=== PATIENT | male | born 1990 | race Asian ===

== ENCOUNTER 2024-05-11 19:42 | Inpatient (IN) ==
[2024-05-11] MEDS: SODIUM CHLORIDE 0.9% 1,000 ML IV SCH (20:10)
[2024-05-11] MEDS: ONDANSETRON INJ 2 MG/ML 2 ML VIAL IV STA (20:14)
[2024-05-11 20:24] LABS: Hematocrit (blood only) 44.8 % (42.0-52.0); Hemoglobin 15.3 g/dl (14.0-18.0); Mean Corpuscular Hemoglobin 31.4 pg (25.0-34.0); Mean Corpuscular Hgb Conc 34.2 g/dL (32.0-36.0); Platelet Count 311 K/uL (130-400); RDW Coefficient of Variation 11.9 % (11.5-14.5); RDW Standard Deviation 40.2 fL (36.4-46.3); Red Blood Count 4.87 M/uL (4.70-6.10); White Blood Count 19.31 K/ul (4.8-10.8)
[2024-05-11 20:26] LABS: iSTAT Creatinine 0.9 mg/dl (0.6-1.3); iSTAT Ionized Calcium 1.17 mmol/l (1.12-1.32)
[2024-05-11 20:35] LABS: Alanine Aminotransferase 30 U/L (7-52); Albumin Globulin Ratio 1.7 (0.9-2); Albumin Level 5.2 gm/dl (3.4-5.0); Alkaline Phosphatase 84 U/L (34-104); Anion Gap 15 (3-11); Aspartate Aminotransferase 32 U/L (13-39); BUN Creatinine Ratio 18.1 (10-20); Bilirubin,Total 1.5 mg/dl (0.2-1.0); Blood Urea Nitrogen 17 mg/dl (6-23); Calcium 10.8 mg/dl (8.6-10.3); Carbon Dioxide 22 mmol/L (21-32); Chloride 100 mmol/L (98-107); Creatine Kinase 432 U/L (30-223); Globulin 3.1 gm/dl (2.5-4.0); Glucose 142 mg/dl (70-99(Fasting)); Lipase 13 U/L (11-82); Sodium 137 mmol/L (136-145); Total Protein 8.3 gm/dl (6.0-8.3)
--- NOTE | 2024-05-11 20:58 | Emergency Department Note ---
Impression & Plan Small bowel obstruction, Abdominal pain ED Provider Note NAME: BRE PEREA AGE: 34 SEX: M : 1990 ARRIVES VIA: Walk-In INFORMANT: Patient ED PROVIDER(S): Vasiliy Pedraza DO CHIEF COMPLAINT: abdominal pain HPI: Patient is a 34-year-old male who presents to the ER for severe diffuse crampy abdominal pain associated with nausea and vomiting. He notes he finished up a 12 mile run at [employer]. He normally runs ultramarathons. He notes since this ended around 330 he started vomiting around 4:00 and has been unable to keep anything down. He denies any history of dysuria, urgency or frequency. No other exacerbating or remitting factors. No previous abdominal surgeries. Family is present at bedside and provided additional history and notes that dad received a phone call because the pain was getting worse and he brought him in here directly after the run. ADDITIONAL HISTORY OBTAINED: Per HPI Chronic Medical/Social Conditions Affecting Care: Per HPI PAST MEDICAL HISTORY:See Below PAST SURGICAL HISTORY:See Below FAMILY HISTORY:See Below SOCIAL HISTORY:See Below HOME MEDICATIONS:See Below ALLERGIES:See Below VITALS:See Below PHYSICAL EXAMINATION: GENERAL: Kneeling on bed on all fours holding abdomen, mild distress EYE EXAM: normal conjunctiva. PERRL and EOM's grossly intact. OROPHARYNX: no exudate, no erythema, lips, buccal mucosa, and tongue normal and mucous membranes are moist NECK: supple, no nuchal rigidity, no adenopathy, non-tender LUNGS: Clear to auscultation. Normal chest wall mechanics HEART: no murmurs, S1 normal and S2 normal ABDOMEN: abdomen soft, non-tender, normo-active bowel sounds, no masses, no rebound or guarding. UPPER EXTREMITIES: upper extremities are grossly normal. LOWER EXTREMITIES: No pitting edema. NEURO EXAM: Normal sensorium, cranial nerves II-XII grossly intact, normal speech, no gross weakness of arms, no gross weakness of legs. MEDICAL DECISION MAKING: Patient is a 34-year-old male who presents to the ER for the above-stated complaint. IV was established and blood work was obtained. Labs show leukocytosis of 19,000. No significant anemia. BMP along with LFTs was unremarkable. T. bili slightly up to 1.5. Lactate was normal. CK at 400. Lipase was normal. Patient was given [address] abdomen pelvis suggested and showed a small bowel obstruction. Consulted Dinesh from general surgery who evaluate the patient at bedside here. He agreed and recommended admission. Discussed with Dr. Shukla for admission and further evaluation. Patient was given morphine as well as Zofran. Consults/Care Managements Discussions: Per MDM Triage Nursing notes reviewed. Limited review of prior medical records performed Vital Signs: reviewed and remarkable for no significant abnormalities Differential diagnosis: Differential diagnoses includes but is not limited to gastritis, peptic ulcer disease, GERD, gallbladder disease, pancreatitis, small bowel obstruction, appendicitis, diverticulitis, hernia, urinary tract infection, torsion, perforation, trauma, infectious. ER treatment provided: See below Diagnostics interpreted by me include EKG and cardiac monitoring as listed below: -Cardiac Monitoring: An order was placed for continuous cardiac monitoring. The monitor shows a rate of 70 with sinus rhythm. -ECG: none -Laboratory studies:Interpreted by me as stated above in MDM and shown below. Imaging studies: Xrays: As interpreted by me:none CTs show: CT abdomen pelvis per my pulmonary interpretation showed multiple air- fluid levels CT abdomen pelvis per radiology suggest small bowel obstruction Procedures:none Critical Care: None Past Med/Surg History Problem List (Updated 05/11/24 @ 23:10 by Vasiliy Pedraza DO) Abdominal pain (Acute) Small bowel obstruction (Acute) Social History Smoking Status: Never smoker Feels Safe at Home: Yes Allergies Allergies Allergy/AdvReac Type Severity Reaction Status Date / Time diphenhydramine Allergy Anaphylaxis Unverified 05/11/24 21:58 [From Benadryl] Iodinated Contrast Media Allergy Unknown Unverified 05/11/24 22:00 vancomycin AdvReac Itching Unverified 05/11/24 22:00 Home Meds Home Medications Medication Instructions Recorded Confirmed No Known Home Medications 05/11/24 05/11/24 Results & Data (ED) Vital Signs Vital Signs - 24 hr 05/11/24 19:45 05/11/24 19:49 05/11/24 20:00 Temperature 36.4 C L Temperature Source Temporal Artery Scan Pulse Rate 79 70 Pulse Rate [Left] 70 Pulse Rhythm Regular Regular Pulse Rhythm [Left] Regular Pulse Strength Normal Pulse Strength [Left] Normal Respiratory Rate 20 24 Respiratory Effort / Characteristics Non-Labored Spontaneous Non-Labored Spontaneous Respiratory Depth Normal Normal Respiratory Pattern Regular Blood Pressure 120/77 Blood Pressure [Right Arm] 130/73 Blood Pressure Mean 91 Blood Pressure Mean [Right Arm] 92 Blood Pressure Position [Right Arm] Lying Pulse Oximetry 98 99 99 Oxygen Delivery Method Room Air Room Air Room Air Sepsis Recent Fever Within 48 Hours No Sepsis New/Unexplained Change in Mental Status N/A Sepsis Action Taken by Nursing No Action Required 05/11/24 20:01 05/11/24 22:00 Temperature Temperature Source Pulse Rate 66 Pulse Rate [Left] 68 Pulse Rhythm Pulse Rhythm [Left] Regular Pulse Strength Pulse Strength [Left] Normal Respiratory Rate 20 Respiratory Effort / Characteristics Non-Labored Spontaneous Respiratory Depth Normal Respiratory Pattern Blood Pressure Blood Pressure [Right Arm] 117/79 Blood Pressure Mean Blood Pressure Mean [Right Arm] 91 Blood Pressure Position [Right Arm] Lying Pulse Oximetry 100 Oxygen Delivery Method Room Air Sepsis Recent Fever Within 48 Hours Sepsis New/Unexplained Change in Mental Status Sepsis Action Taken by Nursing Laboratory Data 05/11/24 20:04 05/11/24 20:04 Lab Results 05/11/24 05/11/24 05/11/24 Range/Units 20:04 20:13 22:10 WBC 19.31 H (4.8-10.8) K/ul RBC 4.87 (4.70-6.10) M/uL Hgb 15.3 (14.0-18.0) g/dl POC Hgb 16.0 (14.0-18.0) g/dl Hct 44.8 (42.0-52.0) % POC Hct 47 (42-52) % MCV 92.0 (80.0-100.0) fL MCH 31.4 (25.0-34.0) pg MCHC 34.2 (32.0-36.0) g/dL RDW Std Deviation 40.2 (36.4-46.3) fL RDW Coeff of Alonso 11.9 (11.5-14.5) % Plt Count 311 (130-400) K/uL MPV 10.0 (9.4-12.4) fL Immature Gran % (Auto) 0.7 % Neut % (Auto) 91.1 % Lymph % (Auto) 4.3 % Chaffee % (Auto) 3.5 % Eos % (Auto) 0.1 % Baso % (Auto) 0.3 % Neut # (Auto) 17.61 H (1.40-6.50) K/uL Lymph # (Auto) 0.83 L (1.20-3.40) K/uL [place]affee # (Auto) 0.67 H (0.11-0.59) K/uL Eos # (Auto) 0.01 (0.00-0.50) K/uL Baso # (Auto) 0.06 (0.00-0.20) K/uL Immature Gran # (Auto) 0.13 (0.01-0.20) K/uL POC Sodium 138 (135-144) mmol/L Sodium 137 (136-145) mmol/L POC Potassium 4.0 (3.3-5.0) mmol/L Potassium 4.0 (3.5-5.1) mmol/L POC Chloride 101 (101-112) mmol/L Chloride 100 (98-107) mmol/L Carbon Dioxide 22 (21-32) mmol/L POC Total CO2 20 L (24-31) mmol/L Anion Gap 15 H (3-11) POC Anion Gap 21.0 (16-25) mmol/L POC BUN 18 (7-18) mg/dl BUN 17 (6-23) mg/dl Creatinine 0.94 (0.6-1.4) mg/dl POC Creatinine 0.9 (0.6-1.3) mg/dl Est Cr Clr Drug Dosing Not Reportable eGFR 108.42 BUN/Creatinine Ratio 18.1 (10-20) Glucose 142 H (70-99(Fasting)) mg/dl POC Glucose (other) 147 H (70-99) mg/dl Lactate 1.4 (0.4-2.0) mmol/L Calcium 10.8 H (8.6-10.3) mg/dl POC Ioniz Calcium Billie 1.17 (1.12-1.32) mmol/l Total Bilirubin 1.5 H (0.2-1.0) mg/dl AST 32 (13-39) U/L ALT 30 (7-52) U/L Alkaline Phosphatase 84 (34-104) U/L Total Creatine Kinase 432 H (30-223) U/L Total Protein 8.3 (6.0-8.3) gm/dl Albumin 5.2 H (3.4-5.0) gm/dl Globulin 3.1 (2.5-4.0) gm/dl Albumin/Globulin Ratio 1.7 (0.9-2) Lipase 13 (11-82) U/L Administered Medications Lactated Ringer's (Lr) 1,000 mls @ 125 mls/hr IV .Q8H TYE Stop: 05/12/24 22:14 Last Admin: 05/11/24 22:31 Dose: 125 mls/hr Documented By: [facility] Discontinued Medications Sodium Chloride (Nss) 1,000 mls @ 999 mls/hr IV .Q1H1M TYE Stop: 05/11/24 22:15 Last Infusion: 05/11/24 21:50 Dose: Infused Documented By: Admin: 05/11/24 21:47 Dose: 999 mls/hr Documented By: Infusion: 05/11/24 21:24 Dose: Infused Documented By: Admin: 05/11/24 20:10 Dose: 999 mls/hr Documented By: SYLVESTER Morphine Sulfate (Morphine Sulfate 4 Mg/Ml 1 Ml Carp\Vial) 4 mg IV NOW STA Stop: 05/11/24 21:24 Last Admin: 05/11/24 21:50 Dose: Not Given Documented By: [facility] Ondansetron HCl (Ondansetron Inj 2 Mg/Ml 2 Ml Vial) 4 mg IV NOW STA Stop: 05/11/24 20:08 Last Admin: 05/11/24 20:14 Dose: 4 mg Documented By: SYLVESTER Imaging Data Radiologist's Impression: Abdomen/Pelvis CT 05/11/24 20:30 Exam(s): CT ABDOMEN + PELVIS Without Contrast EXAM: CT Abdomen and Pelvis Without Intravenous Contrast CLINICAL HISTORY: Reason for exam: abd pain n/v. TECHNIQUE: Axial computed tomography images of the abdomen and pelvis without intravenous contrast. CTDI is 7 mGy and DLP is 334 mGy-cm. Automated exposure control was utilized for the study. A dose lowering technique was utilized adhering to the principles of ALARA. COMPARISON: No relevant prior studies available. FINDINGS: ABDOMEN: Liver: Unremarkable. Gallbladder and bile ducts: Unremarkable. Pancreas: Unremarkable. Spleen: Unremarkable. Adrenals: Unremarkable. Kidneys and ureters: Unremarkable. No obstructing stones. No hydronephrosis. Stomach and bowel: Fluid-filled distended small bowel loops predominantly involving the jejunum. The ileum appears decompressed. Findings are suggestive of obstruction. No pneumatosis, portal venous gas, or free air. Transition point not clearly identified. PELVIS: Appendix: No findings to suggest acute appendicitis. Bladder: Unremarkable. Reproductive: Unremarkable as visualized. ABDOMEN and PELVIS: Intraperitoneal space: Indeterminate fat stranding in the left upper quadrant. The lack of IV contrast limits evaluation. No free fluid or free air. Bones/joints: No acute fracture. Soft tissues: Unremarkable. Vasculature: Unremarkable. Lymph nodes: Unremarkable. IMPRESSION: 1. Findings suggestive of small bowel obstruction. 2. Indeterminate fat stranding in the left upper quadrant. The lack of IV contrast limits evaluation. Electronically signed by: Sukhdev Gonsalez MD 05/11/24 21:07 PM Discharge Plan Visit Data Chief Complaint: Vomiting Stated Complaint: VOMITING ED Provider: Vasiliy Pedraza Discharge Problem: Small bowel obstruction, Abdominal pain Forms Stand Alone Forms: Se[employer] Prescriptions Prescriptions: No Action No Known Home Medications Referrals Referrals: PCP,NO [Primary Care Provider] - Discharge Problem: Abdominal pain Qualifiers: Abdominal location: unspecified location Qualified Code(s): R10.9 - Unspecified abdominal pain
[2024-05-11 20:59] LABS: Basophils # (auto) 0.06 K/uL (0.00-0.20); Basophils % (auto) 0.3 %; Eosinophils # (auto) 0.01 K/uL (0.00-0.50); Eosinophils % (auto) 0.1 %; Immature Granulocytes # (auto) 0.13 K/uL (0.01-0.20); Immature Granulocytes % (auto) 0.7 %; Lymphocytes # (auto) 0.83 K/uL (1.20-3.40); Lymphocytes % (auto) 4.3 %; Monocytes # (auto) 0.67 K/uL (0.11-0.59); Monocytes % (auto) 3.5 %; Neutrophils # (auto) 17.61 K/uL (1.40-6.50); Neutrophils % (auto) 91.1 %
--- NOTE | 2024-05-11 21:09 | CT Scan Report ---
Exam(s): CT ABDOMEN + PELVIS Without Contrast EXAM: CT Abdomen and Pelvis Without Intravenous Contrast CLINICAL HISTORY: Reason for exam: abd pain n/v. TECHNIQUE: Axial computed tomography images of the abdomen and pelvis without intravenous contrast. CTDI is 7 mGy and DLP is 334 mGy-cm. Automated exposure control was utilized for the study. A dose lowering technique was utilized adhering to the principles of ALARA. COMPARISON: No relevant prior studies available. FINDINGS: ABDOMEN: Liver: Unremarkable. Gallbladder and bile ducts: Unremarkable. Pancreas: Unremarkable. Spleen: Unremarkable. Adrenals: Unremarkable. Kidneys and ureters: Unremarkable. No obstructing stones. No hydronephrosis. Stomach and bowel: Fluid-filled distended small bowel loops predominantly involving the jejunum. The ileum appears decompressed. Findings are suggestive of obstruction. No pneumatosis, portal venous gas, or free air. Transition point not clearly identified. PELVIS: Appendix: No findings to suggest acute appendicitis. Bladder: Unremarkable. Reproductive: Unremarkable as visualized. ABDOMEN and PELVIS: Intraperitoneal space: Indeterminate fat stranding in the left upper quadrant. The lack of IV contrast limits evaluation. No free fluid or free air. Bones/joints: No acute fracture. Soft tissues: Unremarkable. Vasculature: Unremarkable. Lymph nodes: Unremarkable. IMPRESSION: 1. Findings suggestive of small bowel obstruction. 2. Indeterminate fat stranding in the left upper quadrant. The lack of IV contrast limits evaluation. Electronically signed by: Sukhdev Gonsalez MD 05/11/24 21:07 PM
[2024-05-11] MEDS: MoRPHine SULFATE 4 MG/ML 1 ML CARP\\VIAL IV STA (21:50)
--- NOTE | 2024-05-11 21:54 | History & Physical Report ---
Date of Service May 11, 2024 Assessment & Plan (1) Small bowel obstruction: Plan: Pt is a 34 yo male presenting due to vomiting. SBO - unclear etiology; no hx of bowel obstructions, no abdominal surgeries, etc; suspect abdominal pain possibly secondary to transient ischemia (although lactic acid WNL) - lab work significant for leukocytosis to 19 w/ left shift, Hgb 15.3, Cr 0.94, Ca 10.8, bilirubin 1.5, CK 432, and lipase 13 - CTAP showing findings suggestive of SBO and fat stranding in left upper quadrant - will treat conservatively; NPO, IVF, nausea/pain meds PRN - if symptoms remain stable, would recommend advancement of diet as tolerated Diet: NPO, IVF at 125 mL/hr VTE ppx: deferred, low risk- encourage ambulation Code: full Dispo: admit to med/surg History of Present Illness Chief Complaint: vomiting Primary Care Provider: NO PCP Pt is a 34 yo male presenting due to vomiting. 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 He notes about 20 minutes after finishing the race he developed severe, sharp, diffuse abdominal pain. He laid down in his car for an hour for the pain to pass. He then began vomiting- no blood in his vomit. He denies any BM since the race; his last BM was prior to the race today. He is typically regular with his BM. No personal or fam hx of bowel concerns or IBD. In the ER, pt was given 4mg of zofran and 2L of NS. Allergies Allergy/AdvReac Type Severity Reaction Status Date / Time diphenhydramine Allergy Anaphylaxis Unverified 05/11/24 21:58 [From Benadryl] Iodinated Contrast Media Allergy Unknown Unverified 05/11/24 22:00 vancomycin AdvReac Itching Unverified 05/11/24 22:00 Home Medications Medication Instructions Recorded Confirmed Type No Known Home Medications 05/11/24 05/11/24 History Past Med/Surg History Problem List (Updated 05/11/24 @ 23:10 by Vasiliy Pedraza DO) Abdominal pain (Acute) Small bowel obstruction (Acute) Social History Smoking Status: Never smoker Hx Alcohol Use: Yes Alcohol type: beer, wine and hard liquor Hx Substance Use: No Communication Ability: Effective [employer] Experience Strategy Required: No Beliefs That Will Affect Care: None Current Living Situation: Family Feels Safe at Home: Yes Assistive Devices: None Review of Systems Review of Systems: As per HPI Physical Exam Constitutional: NAD, vitals WNL. Eyes: Conjunctivae normal. Respiratory: CTA bilaterally. Non labored breathing. No rhonchi, wheezing, or crackles. Cardiovascular: RRR. No murmurs noted. No LE edema. Gastrointestinal (Abdomen): Nontender, +BS. No masses noted. Skin: No rashes or skin lesions noted. Neurologic: Sensation grossly intact. No FND appreciated. Psychiatric: Speech of normal pace and content. Mood and affect congruent. Results & Data Results & Data Vital Signs (Past 12 Hours) Vital Signs Temp Pulse Pulse Resp BP BP Pulse Ox 05/11/24 20:01 66 05/11/24 20:00 70 24 130/73 99 05/11/24 19:49 70 99 05/11/24 19:45 36.4 C L 79 20 120/77 98 O2 Del Method 05/11/24 20:01 05/11/24 20:00 Room Air 05/11/24 19:49 Room Air 05/11/24 19:45 Room Air Supervising Physician Co-Signing Physician Notes Attending addendum: I have physically seen this patient, have supervised the medical residents activities, and agree with the H&P unless as otherwise noted. Assessment and Plan: Small bowel obstruction- N.p.o. No obvious precipitating cause Patient is an avid participant, and may be association with transient ischemia As noted on CT scan of abdomen pelvis Zofran 4 mg IV every 6 hours as needed IV fluids as noted Consult to general surgery Resident Activity Tracking Resident Involvement: Resident Care Provided Care Provided: Adult Hospital Medicine
--- NOTE | 2024-05-11 22:03 | Surgery Consultation ---
Date of Consultation May 11, 2024 Assessment & Plan (1) Small bowel obstruction: I discussed with the treating emergency room physician and the patient is being admitted on the hospitalist service. I did evaluate the patient in room B4. From a surgical perspective we recommend the following: The patient does not have definite small bowel obstruction as there is no clear delineation or transition point on his CT scan. I do not appreciate any hernias and the patient has a virgin abdomen thus making intra-abdominal adhesions less likely I did discuss with the patient that it is possible that he may have had some transient gut ischemia due to his recent endurance event and the symptoms he was experiencing may be secondary to this Patient also has an element of rhabdomyolysis, also likely from his recent endurance event and this may be contributing to his current symptomatology Would recommend keeping patient n.p.o. for the present time Would recommend providing aggressive intravenous fluid for hydration Would recommend following serial labs Would recommend utilizing analgesics and antiemetics sparingly as we do not mask an underlying problem that may be present We will consider instituting oral intake beginning with clear liquids as the patient symptomatology continues to improve At the present time the patient currently is not experiencing any nausea and his abdomen is nondistended therefore I feel we do not need to place an NG tube at this time. If he does have any clinical deterioration we will rethink the use of this modality -At the time of my interview with the patient he was noted to be nontoxic- appearing. He is normotensive and not tachycardic. He also does not have a fever. Additional recommendations with forthcoming based on his clinical course as it unfolds Addendum (6:00 AM) Patient revisited at bedside. Patient says since my initial visit in the emergency department he had 1 further episode of nausea around midnight but is not had any since. He has since been able to urinate without difficulty he also notes that he has had multiple bowel movements. At the present time he says his abdomen feels completely fine without any pain or nausea. On physical exam patient's abdomen is soft and nondistended. There is no pain with palpation in his abdomen is entirely benign. Will continue with plan as outlined above History of Present Illness Reason for Consultation: Possible small bowel obstruction History of Present Illness This is a 34-year-old male who presented [facility] emergency department secondary to abdominal pain. Patient says that he typically runs ultramarathons and ran a race today at [facility] just outside of [place], [place]. Patient says that the race was approximately 12 miles long into 3 separate legs. The patient says that upon the conclusion of the race he was initially doing well but shortly thereafter developed severe stomach cramps in a generalized fashion without any radiation or modifying factors. Patient says that shortly after these cramps began he had what he describes as a normal bowel movement without melena or blood. He then had severe nausea and vomiting and was unable to keep any oral intake down. Because of this he presented the emergency department. Since his symptoms began he has had 1 bowel movement as noted above but has not had any since and is not passing any flatus. He notes he has never had any abdominal surgery before. He has never experienced such symptoms after any of his running events in the past. He does note that his most recent bout of emesis was approximate 2 hours ago. Since arrival to the emergency department he has had labs and imaging which I independently reviewed. A CT scan of the abdomen pelvis showed that that patient had fluid-filled and distended small bowel loops largely involving the jejunum with a decompressed ileum. Interpreting radiologist could not exclude small bowel obstruction. There is no pneumatosis, portal venous gas, or free air. There is also no clearly defined transition point. Labs included CBC were white blood cell count was elevated 19.3. Hemoglobin and hematocrit as well as the platelet count were normal. Chemistry profile showed sodium and potassium as well as the BUN and creatinine were normal. Patient did have an elevation of his total bilirubin 1.5 but his LFTs were otherwise unremarkable. His lipase was not elevated. Patient's total creatinine kinase level was 432. Lactic acid level was not elevated at 1.4. At the time of my interview the patient had already received intravenous fluids for hydration and notes that he was feeling somewhat better. Concerning past medical history the patient denies any medical problems Concerning past surgical history he had surgery on his right hand but has never had any additional surgeries Patient notes he does not take any medications but he says he is allergic to vancomycin which causes "red man" syndrome, Compazine which causes combativeness, and he also notes that he reacts unfavorably to Benadryl. The patient also reported to the treating emergency room physician that he is anaphylactic to intravenous contrast Concerning social history the patient consumes approximately 5 alcoholic beverages per week. He does not smoke or vape Concerning family history the patient says that his father has some type of an delineated bowel problem he is not sure of any specific details on Allergies Allergy/AdvReac Type Severity Reaction Status Date / Time diphenhydramine Allergy Anaphylaxis Unverified 05/11/24 21:58 [From Benadryl] Iodinated Contrast Media Allergy Unknown Unverified 05/11/24 22:00 vancomycin AdvReac Itching Unverified 05/11/24 22:00 Home Medications Medication Instructions Recorded Confirmed Type No Known Home Medications 05/11/24 05/11/24 History Patient History Social History Smoking Status: Never smoker Hx Alcohol Use: Yes Alcohol type: beer, wine and hard liquor Hx Substance Use: No Communication Ability: Effective Systems Mechanic Required: No Beliefs That Will Affect Care: None Current Living Situation: Family Other Information That Helps Us Care for You: No Feels Safe at Home: Yes Safety Concerns: Feels Safe At This Time Assistive Devices: None Review of Systems Review of Systems: All systems reviewed & are unremarkable except as noted in HPI & below Physical Exam Constitutional: WD/WN, vitals as above Eyes: no conjunctival abnormality ENMT: Ears: no hearing impairment and no external ear abnormality Mouth: no oropharynx abnormality Neck: trachea midline Respiratory: normal respiratory effort; no respiratory distress and no labored breathing Cardiovascular: Rate/Rhythm: regular rate and regular rhythm Gastrointestinal (Abdomen): At the time of my exam the patient's abdomen was soft and nondistended. It was nonrigid. There is no pain with palpation. I did not appreciate any hernias on my exam. There is no rebound tenderness or guarding or other signs of peritonitis Musculoskeletal: No calf tenderness. Skin: no rashes Neurologic: moves all extremities Psychiatric: A+Ox3, euthymic affect Results & Data Vital Signs (Past 12 Hours) Vital Signs Temp Pulse Pulse Resp BP BP Pulse Ox 05/11/24 20:01 66 05/11/24 20:00 70 24 130/73 99 05/11/24 19:49 70 99 05/11/24 19:45 36.4 C L 79 20 120/77 98 O2 Del Method 05/11/24 20:01 05/11/24 20:00 Room Air 05/11/24 19:49 Room Air 05/11/24 19:45 Room Air PG Care Time/CCT Total # of Minutes Spent Total Time Spent with Patient: Total time spent is greater than 50% in coordination of care (as documented) at patient's floor/unit and/or counseling patient: Coding Level of Care Code 56334 IN/OBS CONSULT LVL 5,80M Diagnoses Small bowel obstruction K56.609
[2024-05-11] MEDS ORDERED: ONDANSETRON INJ 2 MG/ML 2 ML VIAL IV PRN (22:13)
[2024-05-11] MEDS ORDERED: KETOROLAC TROMETHAMINE 15 MG/ML VIAL IV PRN (22:17)
[2024-05-11] MEDS ORDERED: HYDROmorphone INJ 0.5 MG/0.5 ML SYR IV PRN (22:17)
[2024-05-11] MEDS ORDERED: ACETAMINOPHEN 1,000 MG/100 ML VIAL IV PRN (22:17)
[2024-05-11] MEDS: LACTATED RINGER'S 1,000 ML IV SCH (22:31)
[2024-05-11 23:33] LABS: Appearance Urine Clear (Clear); Bacteria Urine Automated None Seen (None Seen); Bilirubin Urine Negative (Negative); Blood Urine Negative (Negative); Cast Urine Automated 0-2 /lpf (0-2); Color Urine Yellow; Epithelial Cell Urine Auto 0-2 /hpf (0-2); Glucose Urine UA Negative (Negative); Ketones Urine 4+ (Negative); Leukocyte Esterase Urine Negative (Negative); Nitrite Urine Negative (Negative); Protein Urine Trace (Negative); RBC Urine Automated 0-2 /hpf (0-2); Specific Gravity Urine 1.024 (1.000-1.030); Urobilinogen Urine Negative (Negative); WBC Urine Automated 0-5 /hpf (0-5)
[2024-05-12 08:55] LABS: Basophils # (auto) 0.04 K/uL (0.00-0.20); Basophils % (auto) 0.3 %; Eosinophils # (auto) 0.02 K/uL (0.00-0.50); Eosinophils % (auto) 0.2 %; Hematocrit (blood only) 40.5 % (42.0-52.0); Hemoglobin 13.5 g/dl (14.0-18.0); Immature Granulocytes # (auto) 0.04 K/uL (0.01-0.20); Immature Granulocytes % (auto) 0.3 %; Lymphocytes # (auto) 1.84 K/uL (1.20-3.40); Lymphocytes % (auto) 15.7 %; Mean Corpuscular Hemoglobin 31.3 pg (25.0-34.0); Mean Corpuscular Hgb Conc 33.3 g/dL (32.0-36.0); Mean Corpuscular Volume 93.8 fL (80.0-100.0); Mean Platelet Volume 10.4 fL (9.4-12.4); Monocytes # (auto) 1.02 K/uL (0.11-0.59); Monocytes % (auto) 8.7 %; Neutrophils # (auto) 8.74 K/uL (1.40-6.50); Neutrophils % (auto) 74.8 %; Platelet Count 262 K/uL (130-400); RDW Coefficient of Variation 11.9 % (11.5-14.5); RDW Standard Deviation 41.5 fL (36.4-46.3); Red Blood Count 4.32 M/uL (4.70-6.10)
[2024-05-12 09:05] LABS: Albumin Globulin Ratio 1.9 (0.9-2); Albumin Level 4.1 gm/dl (3.4-5.0); Calcium 9.1 mg/dl (8.6-10.3); Creatinine Clr Calc Pharmacy 119.6 ml/min; Globulin 2.2 gm/dl (2.5-4.0); Total Protein 6.3 gm/dl (6.0-8.3)
--- NOTE | 2024-05-12 09:23 | Surgery Progress Note ---
<Statement entered by Yolande Solis, - 05/12/24 15:21> Not likely SBO. Probable ileus secondary to shunting from GI tract after running. Patient without abdominal pain or tenderness this am. No nausea and has started passing flatus. Agree with the plan. Date of Service May 12, 2024 Assessment & Plan (1) Small bowel obstruction: Plan: pt feeling well this AM having multiple BMs and flatus mild bloating , no nausea ordered KUB WBC downtrending, 11(19) poss. starting clears this AM pending KUB Admission and Anticipated Discharge Date Admission Date: May 11, 2024 Subjective pt denies n/v , abd pain , having multiple bms , mild bloating Review of Systems Constitutional: no fever and no chills Respiratory: no dyspnea Cardiovascular: no chest pain Gastrointestinal: + bloating; no abdominal pain, no nausea and no vomiting Musculoskeletal: no muscle weakness Physical Exam Constitutional: cooperative and comfortable; no acute distress Respiratory: normal respiratory effort; no respiratory distress Cardiovascular: Rate/Rhythm: regular rate Gastrointestinal (Abdomen): Inspection/Auscultation: abdomen not distended Percussion/Palpation: abdomen soft; abdomen nontender and no guarding Musculoskeletal: no cyanosis or clubbing, extremities motor strength 5/5 Psychiatric: A+Ox3, euthymic affect Results & Data Vital Signs (Past 12 Hours) Vital Signs Temp Pulse Resp BP Pulse Ox O2 Del Method 05/12/24 07:53 98.8 F 62 16 94/58 L 98 Room Air 05/12/24 00:40 Room Air 05/12/24 00:40 99.1 F 60 16 117/74 97 Room Air 05/11/24 22:14 68 16 100 Room Air 05/11/24 22:00 68 20 117/79 100 Room Air Results CBC w Diff Results: RBC 4.32 M/uL (4.70-6.10) L 05/12/24 WBC 11.70 K/ul (4.8-10.8) H 05/12/24 Hgb 13.5 g/dl (14.0-18.0) L 05/12/24 Hct 40.5 % (42.0-52.0) L 05/12/24 MCV 93.8 fL (80.0-100.0) 05/12/24 MCH 31.3 pg (25.0-34.0) 05/12/24 MCHC 33.3 g/dL (32.0-36.0) 05/12/24 RDW Standard Deviation 41.5 fL (36.4-46.3) 05/12/24 RDW Coefficient of Variation 11.9 % (11.5-14.5) 05/12/24 Plt Count 262 K/uL (130-400) 05/12/24 MPV 10.4 fL (9.4-12.4) 05/12/24 Neutrophils (%) (Auto) 74.8 % 05/12/24 Lymphocytes (%) (Auto) 15.7 % 05/12/24 Monocytes # (Auto) 1.02 K/uL (0.11-0.59) H 05/12/24 Eosinophils # (Auto) 0.02 K/uL (0.00-0.50) 05/12/24 Immature Granulocyte % (Auto) 0.3 % 05/12/24 Neutrophils # (Auto) 8.74 K/uL (1.40-6.50) H 05/12/24 Lymphocytes # (Auto) 1.84 K/uL (1.20-3.40) 05/12/24 Monocytes # (Auto) 1.02 K/uL (0.11-0.59) H 05/12/24 Eosinophils # (Auto) 0.02 K/uL (0.00-0.50) 05/12/24 Basophils # (Auto) 0.04 K/uL (0.00-0.20) 05/12/24 Immature Granulocyte # (Auto) 0.04 K/uL (0.01-0.20) 4 PG Care Time/CCT Total # of Minutes Spent Total Time Spent with Patient: Total time spent is greater than 50% in coordination of care (as documented) at patient's floor/unit and/or counseling patient: Coding Level of Care Code 05256 SUB INP/OBS CARE 08/09MIN Diagnoses Small bowel obstruction K56.609
--- NOTE | 2024-05-12 10:08 | XRay Report ---
KUB HISTORY: Acute generalized abdominal pain with small bowel obstruction sbo COMPARISON: CT 05/11/2024 FINDINGS: Vascular calcifications of the pelvis. There is persistent gaseous distention of the small bowel with air-filled loops measuring up to 4.3 cm. Air also noted within the transverse colon. No r enal calculi. No ureteral calculi. No pneumoperitoneum or pneumatosis. No fracture. IMPRESSION: Persistent small bowel distention suggestive of ileus versus obstruction. Continued follow-up is need ed. ACT 112: Negative or not required by law. The above report was generated using voice recognition software. It may contain grammatical, syntax o r spelling errors. Electronically signed by: Gamal Bruner M.D. 05/12/2024 10:06 AM
--- NOTE | 2024-05-12 14:04 | Hospitalist Progress Note ---
Date of Service May 12, 2024 Assessment & Plan (1) Abdominal pain: Plan: Presented with vomiting and severe, sharp, diffuse abdominal pain after finishing 12 mile run at [facility] - No history of abdominal surgeries, prior bowel obstructions, etc. - Leukocytosis of 19.31, CK of 432, total bilirubin of 1.5, and UA with 4+ ketones on admission -- suspect element of rhabdomyolysis given endurance running event prior to admission - CT A/P with findings suggestive of SBO, transition point not clearly identified - Nausea resolved on admission, NG tube deferred - Treated initially with IV fluids, which were discontinued when diet was advanced to clear liquids. Encourage oral intake - General surgery consulted, following - Suspect abdominal pain and vomiting was secondary to ischemic colitis event / ileus due to hypotension/dehydration in setting of endurance running versus SBO given no prior history of abdominal surgeries, not definitive SBO on imaging, and quick resolution in his symptoms > Discussed with general surgery about prevention strategies for the future or further outpatient referrals; not needed per their recommendations as he likely got an ileus from dehydration during excessive exercise - Leukocytosis downtrending to 11.70 -- suspect inflammatory response; no signs of acute infection, afebrile - KUB revealed persistent small bowel distention suggestive of ileus versus obstruction. Continued follow-up is needed - Diet advanced to clear liquids, well-tolerating this. Will advance to full liquids for dinner. If well-tolerated, can advance to low fiber for breakfast 05/13 - Tylenol as needed for pain/fever - Zofran as needed for nausea - Toradol and Dilaudid as needed for severe pain - has not needed Plan Advanced diet Discontinued IV fluids Discussed case with general surgery Dispo: Anticipate discharge home 05/13 if diet advancements are tolerated and he continues to clinically improve VTE PPx: Deferred, low riskencourage ambulation CODE STATUS: Full code Admission and Anticipated Discharge Date Admission Date: May 11, 2024 Supervising Physician Co-Signing Physician Notes Attending Attestation - Chart reviewed, care plan d/w LILI Evangelista. I agree w/ the barrios components of her documentation. Small bowel ileus - due to hypoperfusion in the setting of intense exercise/volume contracted state? (4+ ketones upon presentation) Consider GI consultation in addition to gen surg consult. Need for dedicated study to look at vasculature? Appreciate gen surg assistance. Cheng Jeronimo MD Subjective Patient seen and evaluated at bedside. He described his symptom onset yesterday. He states his abdominal pain has completely resolved, denies any nausea or vomiting, and has passed gas and had multiple bowel movements. We discussed that I feel this is more likely ischemic colitis than a small bowel obstruction as he has no prior history of abdominal surgeries, not definitive SBO on imaging, and quick resolution in his symptoms. Suspect episode of ischemic colitis was secondary to hypotension/dehydration in the setting of endurance running. Anticipate discharge home tomorrow, 05/13, if clinical course continues to improve. No additional complaints or concerns at this time. Physical Exam Physical Exam: General: No acute distress, nondiaphoretic, well-developed, well-nourished. Skin: The skin was without rashes, erythema, edema, or bruising. Cardiac: Regular rate and rhythm without murmurs gallops or rubs. Pulm: Clear to auscultation bilaterally without wheezes, rales or rhonchi. No respiratory distress. 100% on room air. Abdominal: Soft, nondistended. Nontender to palpation. Bowel sounds present. No rebound tenderness or guarding noted. Neuro: A&O x3. No focal neurological deficits. Results & Data Results & Data Vital Signs (Past 12 Hours) Vital Signs Temp Pulse Resp BP Pulse Ox O2 Del Method 05/12/24 07:53 98.8 F 62 16 94/58 L 98 Room Air Laboratory Results Reviewed CBC Reviewed CMP Reviewed UA Diagnostic Findings Reviewed CT A/P and KUB Abdomen/Pelvis CT 05/11/24 20:30 Exam(s): CT ABDOMEN + PELVIS Without Contrast EXAM: CT Abdomen and Pelvis Without Intravenous Contrast CLINICAL HISTORY: Reason for exam: abd pain n/v. TECHNIQUE: Axial computed tomography images of the abdomen and pelvis without intravenous contrast. CTDI is 7 mGy and DLP is 334 mGy-cm. Automated exposure control was utilized for the study. A dose lowering technique was utilized adhering to the principles of ALARA. COMPARISON: No relevant prior studies available. FINDINGS: ABDOMEN: Liver: Unremarkable. Gallbladder and bile ducts: Unremarkable. Pancreas: Unremarkable. Spleen: Unremarkable. Adrenals: Unremarkable. Kidneys and ureters: Unremarkable. No obstructing stones. No hydronephrosis. Stomach and bowel: Fluid-filled distended small bowel loops predominantly involving the jejunum. The ileum appears decompressed. Findings are suggestive of obstruction. No pneumatosis, portal venous gas, or free air. Transition point not clearly identified. PELVIS: Appendix: No findings to suggest acute appendicitis. Bladder: Unremarkable. Reproductive: Unremarkable as visualized. ABDOMEN and PELVIS: Intraperitoneal space: Indeterminate fat stranding in the left upper quadrant. The lack of IV contrast limits evaluation. No free fluid or free air. Bones/joints: No acute fracture. Soft tissues: Unremarkable. Vasculature: Unremarkable. Lymph nodes: Unremarkable. IMPRESSION: 1. Findings suggestive of small bowel obstruction. 2. Indeterminate fat stranding in the left upper quadrant. The lack of IV contrast limits evaluation. Electronically signed by: Sukhdev Gonsalez MD 05/11/24 21:07 PM KUB X-Ray 05/12/24 07:49 KUB HISTORY: Acute generalized abdominal pain with small bowel obstruction sbo COMPARISON: CT 05/11/2024 FINDINGS: Vascular calcifications of the pelvis. There is persistent gaseous di stention of the small bowel with air-filled loops measuring up to 4.3 cm. Air also noted within the transverse colon. No renal calculi. No ureteral calculi. No pneumoperitoneum or pneumatosis. No fracture. IMPRESSION: Persistent small bowel distention suggestive of ileus versus obstruction. Continued follow-up is needed. ACT 112: Negative or not required by law. The above report was generated using voice recognition software. It may contain grammatical, syntax or spelling errors. Electronically signed by: Gamal Bruner M.D. 05/12/2024 10:06 AM PG Care Time/CCT Total # of Minutes Spent Total Time Spent with Patient: Total time spent is greater than 50% in coordination of care (as documented) at patient's floor/unit and/or counseling patient: Coding Level of Care Code 66828 SUB INP/OBS CARE 2/35MIN Diagnoses Abdominal pain R10.9 Abdominal location: unspecified location (1) Abdominal pain Abdominal location: unspecified location Qualified Code(s): R10.9 - Unspecified abdominal pain
[2024-05-12] MEDS ORDERED: ACETAMINOPHEN 500 MG TAB PO PRN (14:26)
[2024-05-13 08:39] LABS: Hematocrit (blood only) 38.1 % (42.0-52.0); Hemoglobin 12.8 g/dl (14.0-18.0); Mean Corpuscular Hemoglobin 31.1 pg (25.0-34.0); Mean Corpuscular Hgb Conc 33.6 g/dL (32.0-36.0); Mean Corpuscular Volume 92.7 fL (80.0-100.0); Mean Platelet Volume 10.3 fL (9.4-12.4); Platelet Count 234 K/uL (130-400); RDW Coefficient of Variation 11.9 % (11.5-14.5); RDW Standard Deviation 40.7 fL (36.4-46.3); Red Blood Count 4.11 M/uL (4.70-6.10); White Blood Count 4.86 K/ul (4.8-10.8)
--- NOTE | 2024-05-13 09:09 | Surgery Progress Note ---
<Statement entered by Yolande Solis DO - 05/13/24 12:23> This case has been discussed with the the surgical team. I agree with the plan. Date of Service May 13, 2024 Assessment & Plan (1) Small bowel obstruction: Plan: no abd pain having bm and flatus no n/v , on reg diet stable for d/c from our standpoint gen surg will sign off Admission and Anticipated Discharge Date Admission Date: May 11, 2024 Subjective no pain +bms +flatus Review of Systems Gastrointestinal: no abdominal pain, no bloating, no nausea and no vomiting Physical Exam Respiratory: normal respiratory effort; no respiratory distress Gastrointestinal (Abdomen): Inspection/Auscultation: abdomen not distended Percussion/Palpation: abdomen soft; abdomen nontender Results & Data Vital Signs (Past 12 Hours) Vital Signs Temp Pulse Resp BP Pulse Ox O2 Del Method 05/13/24 08:03 98.1 F 52 L 18 115/66 98 Room Air PG Care Time/CCT Total # of Minutes Spent Total Time Spent with Patient: Total time spent is greater than 50% in coordination of care (as documented) at patient's floor/unit and/or counseling patient: Coding Level of Care Code 61959 SUB INP/OBS CARE 25MIN Diagnoses Small bowel obstruction K56.609
[2024-05-13 09:22] LABS: Albumin Globulin Ratio 1.8 (0.9-2); Albumin Level 3.8 gm/dl (3.4-5.0); BUN Creatinine Ratio 15.2 (10-20); Calcium 8.9 mg/dl (8.6-10.3); Creatinine Clr Calc Pharmacy 113.5 ml/min; Globulin 2.1 gm/dl (2.5-4.0); Magnesium 1.8 mg/dl (1.7-2.4); Potassium 3.7 mmol/L (3.5-5.1); Total Protein 5.9 gm/dl (6.0-8.3)
[2024-05-13 09:35] LABS: Thyroid Stimulating Hormone 1.212 uIu/ml (0.300-4.500)
--- NOTE | 2024-05-13 10:47 | Discharge Summary ---
Discharge Summary Date of Service May 13, 2024 Principal Dx & Hospital Course #1 = Principal Diagnosis (1) Abdominal pain: Presented with vomiting and severe, sharp, diffuse abdominal pain after finishing 12 mile run at [employer] No history of abdominal surgeries, prior bowel obstructions, etc. Denies family or personal history of blood in stool/inflammatory bowel disease. CTAP on admission w/ reports of possible SBO but no transition point clearly identified WBC 19k w/ CK 432 and TB 1.5 on admission with 4+ ketones on UA and suspect aspect of rhabdo given endurance running event but also suspect abdominal pain and vomiting secondary to ischemic colitis event vs ileus due to hypotension and/or dehydration in setting of endurance running vs SBO with NO prior abd surgeries General surgery consulted and was treated conservatively with bowel rest and IV hydration and bowels moving with advancement of diet and improvement in PO intake and WBC normalized/no fevers and suspect 2nd to inflammatory response from significant dehydration. Patient evaluated AM 05/13 and discussed with General surgery and ok to dc on low fiber diet and encouraged oral hydration. No further repeat imaging required/passing gas/good bowel sounds on exam Also discussed to avoid excessive exercise for short term as CK 432--> 244 following 1L IVF and stable renal function and continued to encourage PO hydration. TSH checked for completeness and was WNL. Stable for dc home. PCP f/u. Notes For Next Care Provider Encourage hydration, monitor for any sx of IBD but suspect all related to dehydration/rhabdo/hypoperfusion to bowels from significant running prior to admission Consideration for imaging to look at vascular/GI outpatient if any ongoing issues but was doing well/tolerating low fiber diet without issue and wanting to go home. Medication Changes From Visit None Admission HPI Per Admitting Provider Pt is a 34 yo male presenting due to vomiting. 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 He notes about 20 minutes after finishing the race he developed severe, sharp, diffuse abdominal pain. He laid down in his car for an hour for the pain to pass. He then began vomiting- no blo od in his vomit. He denies any BM since the race; his last BM was prior to the race today. He is typically regular with his BM. No personal or fam hx of bowel concerns or IBD. In the ER, pt was given 4mg of zofran and 2L of NS. Admission Exam Per Admitting Provider Constitutional: NAD, vitals WNL. Eyes: Conjunctivae normal. Respiratory: CTA bilaterally. Non labored breathing. No rhonchi, wheezing, or crackles. Cardiovascular: RRR. No murmurs noted. No LE edema. Gastrointestinal (Abdomen): Nontender, +BS. No masses noted. Skin: No rashes or skin lesions noted. Neurologic: Sensation grossly intact. No FND appreciated. Psychiatric: Speech of normal pace and content. Mood and affect congruent. Discharge Exam General: 34yo male sitting up in bed, on computer, NAD, wanting to go home Head atraumatic, normocephalic, mmm, trachea midline Resp: even/unlabored, no w/c/r, on room air 99% CV: RRR/miky to 50-60s, no significant m/r/g, no pitting edema GI: +BS, soft/NT no miguel MSK/Neuro: nonfocal, answering questions appropriately, no confused Psych: AOx3, cooperative/pleasant Discharge Plan Discharge Items Patient Disposition: Home - Self-Care Reason For Visit: VOMITING, SBO Discharge Diagnosis: Small bowel obstruction vs ischemic colitis from severe dehydration Goals: You have been hospitalized for an acute medical problem. During your stay at [facility], we have made an effort to correct the problem that brought you to the hospital while keeping you as comfortable as possible. Medications were used to bring your condition under control and your discharge instructions will include directions for any medications you should take after leaving the hospital. Please make sure you see your Primary Care Provider as part of your follow up plan. Activity: As commented below Activity Comment: increase activity as tolerated. no heavy activity x 1 week Non-emergency contact: Primary Care Provider Call non-emergency contact if: you have any medication questions, your symptoms worsen, your pain is not controlled, your pain is worsening and you have a fever Follow-up/Referrals: PCP,NO [Primary Care Provider] - Diet: Regular and Low Fiber Addtl Attending Provider Instructions: You have been hospitalized for nausea and vomiting and concerns for ischemic colitis vs bowel obstruction and general surgery was consulted. You were treated with IV fluid/hydration and pain control and advancement of your diet. We suspect significant dehydration from the run you had caused decreased perfusion to your bowels in setting of dehydration causing presentation on admission and encourage continued hydration at discharge. You can continue low fiber diet as discussed but encourage plenty of hydration. Please avoid heavy activity for the next week to allow your body to recover. Please follow up with primary care in the next 7-10 days from hospitalization to monitor your progress. Please return to the ER with any fever/chills, worsening abdominal pain or inability to keep up with oral hydration. It has been a pleasure being a part of the medical team providing for you while you have been in the hospital. Take care! Pending Studies at Discharge: No Stand-Alone Forms: My [facility] [employer], Smoking Cessation Medications and DC Order Prescriptions: No Action No Known Home Medications Discharge Orders: Discharge Order (Routine); Ordered 05/13/24 Ordered By: Niya Samayoa Admission Data Admit Date/Time: 05/11/24 22:14 Attending Provider: Tristan Torres Admit Provider: Raquel Mathews Primary Care Provider: PCP,NO Other Providers: Gokul Roberts; Ruddy Stone Other Interventions: Discharge Summary Assessment (RN) Last Done: 05/13/24 11:10 Hospital Stay Data Consultations 05/11/24 21:24 ED Decision to Admit Stat 05/12/24 06:31 Consult General Surgery Routine Diagnostic Imagining Performed Abdomen/Pelvis CT 05/11/24 20:30 Exam(s): CT ABDOMEN + PELVIS Without Contrast EXAM: CT Abdomen and Pelvis Without Intravenous Contrast CLINICAL HISTORY: Reason for exam: abd pain n/v. TECHNIQUE: Axial computed tomography images of the abdomen and pelvis without intravenous contrast. CTDI is 7 mGy and DLP is 334 mGy-cm. Automated exposure control was utilized for the study. A dose lowering technique was utilized adhering to the principles of ALARA. COMPARISON: No relevant prior studies available. FINDINGS: ABDOMEN: Liver: Unremarkable. Gallbladder and bile ducts: Unremarkable. Pancreas: Unremarkable. Spleen: Unremarkable. Adrenals: Unremarkable. Kidneys and ureters: Unremarkable. No obstructing stones. No hydronephrosis. Stomach and bowel: Fluid-filled distended small bowel loops predominantly involving the jejunum. The ileum appears decompressed. Findings are suggestive of obstruction. No pneumatosis, portal venous gas, or free air. Transition point not clearly identified. PELVIS: Appendix: No findings to suggest acute appendicitis. Bladder: Unremarkable. Reproductive: Unremarkable as visualized. ABDOMEN and PELVIS: Intraperitoneal space: Indeterminate fat stranding in the left upper quadrant. The lack of IV contrast limits evaluation. No free fluid or free air. Bones/joints: No acute fracture. Soft tissues: Unremarkable. Vasculature: Unremarkable. Lymph nodes: Unremarkable. IMPRESSION: 1. Findings suggestive of small bowel obstruction. 2. Indeterminate fat stranding in the left upper quadrant. The lack of IV contrast limits evaluation. Electronically signed by: Sukhdev Gonsalez MD 05/11/24 21:07 PM KUB X-Ray 05/12/24 07:49 KUB HISTORY: Acute generalized abdominal pain with small bowel obstruction sbo COMPARISON: CT 05/11/2024 FINDINGS: Vascular calcifications of the pelvis. There is persistent gaseous distention of the small bowel with air-filled loops measuring up to 4.3 cm. Air also noted within the transverse colon. No renal calculi. No ureteral calculi. No pneumoperitoneum or pneumatosis. No fracture. IMPRESSION: Persistent small bowel distention suggestive of ileus versus obstruction. Continued follow-up is needed. ACT 112: Negative or not required by law. The above report was generated using voice recognition software. It may contain grammatical, syntax or spelling errors. Electronically signed by: Gamal Bruner M.D. 05/12/2024 10:06 AM Discharge Instructions Given to Patient (Per Discharging Provider) You have been hospitalized for nausea and vomiting and concerns for ischemic colitis vs bowel obstruction and general surgery was consulted. You were treated with IV fluid/hydration and pain control and advancement of your diet. We suspect significant dehydration from the run you had caused decreased perfusion to your bowels in setting of dehydration causing presentation on admission and encourage continued hydration at discharge. You can continue low fiber diet as discussed but encourage plenty of hydration. Please avoid heavy activity for the next week to allow your body to recover. Please follow up with primary care in the next 7-10 days from hospitalization to monitor your progress. Please return to the ER with any fever/chills, worsening abdominal pain or inability to keep up with oral hydration. It has been a pleasure being a part of the medical team providing for you while you have been in the hospital. Take care! Supervising Physician Co-Signing Physician Notes The patient was not seen by me. The chart was reviewed. Case discussed with LILI Blanton. Agree with assessment and plan Total Time Total Time Spent Total Time Spent (In Minutes): 35 Coding Level of Care Code 99755 INP/OBS DISCH >30 MIN Diagnoses Abdominal pain R10.9 Abdominal location: unspecified location
[2024-05-13 11:10] VITALS: PULSE 61; RESP 16; TEMP 98.6; O2SAT 99
[2024-05-13 11:12] VITALS: BP 116/77
--- NOTE | 2024-05-13 11:30 | Electrocardiogram Report ---
Test Reason : Blood Pressure : */* mmHG Vent. Rate : 65 BPM Atrial Rate : 65 BPM P-R Int : 150 ms QRS Dur : 92 ms QT Int : 430 ms P-R-T Axes : -15 20 -3 degrees QTcB Int : 447 ms Normal sinus rhythm Normal ECG No previous ECGs available Confirmed by Stanley Conrad ([id number]) on 05/13/2024 11:30:27 AM Referred By: REFERRED SELF Confirmed By: Stanley Conrad
--- NOTE | 2024-05-15 18:51 | Billing Data ---
Date of Service May 15, 2024 Coding Level of Care Code 63460 INT INP/OBS CARE
== END 2024-05-13 11:29 | disposition home or self-care (01) | DRG 389 ==
LOC: ED 19:42 → SUATTDRO 22:14 → 3W 22:14